=== PATIENT | male | born 1945 | race Caucasian/White ===

== ENCOUNTER 2023-11-17 01:40 | Inpatient (IN) | payer MEDICARE, OTHER ==
[~2023-11-17] VITALS: Ht 175.3 cm; Wt 65.8 kg
[2023-11-17] MEDS ORDERED: AMLO-212 PO (02:12)
[2023-11-17] MEDS ORDERED: METO-358 PO (02:12)
[2023-11-17] MEDS ORDERED: DOCU-141 PO (02:12)
[2023-11-17] MEDS ORDERED: CEPH500C2 PO (02:12)
[2023-11-17] MEDS ORDERED: LISI20TA30 PO (02:12)
[2023-11-17] MEDS ORDERED: ACET-73 PO (02:12)
[2023-11-17] MEDS ORDERED: DIVA250T4 PO (02:12)
[2023-11-17] MEDS ORDERED: GABA-532 PO (02:12)
[2023-11-17] MEDS ORDERED: CLON0.1T PO (02:12)
[2023-11-17] MEDS ORDERED: POLY15DR31 OP (02:12)
[2023-11-17] MEDS ORDERED: VITA1CAP PO (02:12)
[2023-11-17] MEDS ORDERED: LEVO50TA PO (02:12)
[2023-11-17] MEDS ORDERED: FAMO10TA41 PO (02:12)
[2023-11-17] MEDS ORDERED: HYDR-3980 PO (02:12)
[2023-11-17] MEDS ORDERED: ACET-3117 PO (02:12)
[2023-11-17] MEDS ORDERED: BUSP5TAB3 PO (02:12)
[2023-11-17] MEDS ORDERED: LIDOCAINE 2% (GLYDO= UROJET) 10 ML JELLY MM ONE ×2 (02:45→02:49)
[2023-11-17 02:53] LABS: BASOPHILS # (AUTO) 0.1 K/UL (0.0-0.2); BASOPHILS % (AUTO) 0.5 % (0.0-2.0); EOSINOPHILS # (AUTO) 0.5 K/uL (0.0-0.7); EOSINOPHILS % (AUTO) 4.2 % (0.0-7.0); HEMATOCRIT 38.5 % (36.7-47.1); HEMOGLOBIN 13.1 g/dL (12.5-16.3); LYMPHOCYTES % (AUTO) 26.9 % (20.5-51.5); MEAN CORPUSCULAR HEMOGLOBIN 29.7 uug (23.8-33.4); MEAN CORPUSCULAR HGB CONC 34 g/dL (32.5-36.3); MEAN CORPUSCULAR VOLUME 87.5 fL (73.0-96.2); MONOCYTES # (AUTO) 1.6 K/uL (0.1-1.30); MONOCYTES % (AUTO) 14.6 % (0.0-11.0); NEUTROPHILS % (AUTO) 53.8 % (38.5-71.5); PLATELET COUNT (AUTO) 404 K/uL (152-348); RED CELL DISTRIBUTION WIDTH 14.7 % (12.1-16.2); WHITE BLOOD COUNT (AUTO) 11.1 K/uL (3.6-10.2)
[2023-11-17 03:01] LABS: CALCIUM 8.5 mg/dL (8.5-10.1); CARBON DIOXIDE 22 mmol/L (21-32); CHLORIDE 106 mmol/L (98-107); CREATININE 0.6 mg/dL (0.6-1.3); GLUCOSE 113 mg/dL (74-106); SODIUM SERUM 140 mmol/L (136-145); UREA NITROGEN, BLOOD 19 mg/dL (7-18)
[2023-11-17 03:14] LABS: DIFFERENTIAL COMMENT 1
[2023-11-17 03:21] LABS: ALANINE AMINOTRANSFERASE 19 U/L (16-63); ALBUMIN 2.2 g/dL (3.4-5.0); ALKALINE PHOSPHATASE 68 U/L (50-136); ASPARTATE AMINOTRANSFERASE 9 U/L (15-37); BILIRUBIN,DIRECT 0.2 mg/dL (0.0-0.2); BILIRUBIN,TOTAL 0.4 mg/dL (0.2-1.0); NT-PRO BNP 508 pg/mL (0-125); TOTAL PROTEIN, SERUM 6.5 g/dL (6.4-8.2)
[2023-11-17 04:08] LABS: *BILIRUBIN,URIN NEGATIVE (NEGATIVE); *BLOOD, URINE 2+ (NEGATIVE); *CLARITY,URINE CLEAR (CLEAR); *COLOR,URINE YELLOW (YELLOW); *KETONES,URINE NEGATIVE (NEGATIVE); *PROTEIN,URINE NEGATIVE (NEGATIVE); LEUKOCYTE ESTERASE ,URINE 1+ (NEGATIVE); PH,URINE 6.5 (5.0-8.0); UGLUCOSE NEGATIVE (NEGATIVE)
[2023-11-17 04:10] LABS: NITRITE, URINE NEGATIVE (NEGATIVE)
[2023-11-17 04:13] LABS: BACTERIA,URINE FEW /HPF (NONE SEEN); RBC,URINE 20-50 /HPF (0-3); SQUAMOUS EPITHELIAL CELL,UR NONE SEEN /HPF (NONE SEEN)
[2023-11-17] MEDS ORDERED: HALOPERIDOL LACTATE 5 MG/1 ML VIAL ONE (04:22)
[2023-11-17] MEDS ORDERED: PANTOPRAZOLE SODIUM 40 MG VIAL ONE (04:23)
[2023-11-17] MEDS ORDERED: HALOPERIDOL LACTATE 5 MG/1 ML VIAL IM ONE (04:30)
[2023-11-17] MEDS ORDERED: PANTOPRAZOLE SODIUM IV 80 MG in IV DEXTROSE 5% 100 ML IV ONE (04:30)
[2023-11-17] MEDS ORDERED: LORAZEPAM 2 MG/1 ML VIAL IV ONE (04:45)
[2023-11-17] MEDS ORDERED: LORAZEPAM 2 MG/1 ML VIAL ONE (04:49)
[2023-11-17] MEDS ORDERED: HYDROMORPHONE 1 MG/1 ML DISP.SYRIN IV ONE ×2 (05:15→10:45)
[2023-11-17] MEDS ORDERED: HYDROMORPHONE 1 MG/1 ML DISP.SYRIN ONE ×2 (05:16→10:46)
[2023-11-17] MEDS ORDERED: CEFTRIAXONE /D5W 50ML IVPB **ER PYXIS IV ONE (05:30)
[2023-11-17] MEDS ORDERED: CEFTRIAXONE 1 G in IV DEXTROSE 5% 50 ML IV ONE (05:30)
[2023-11-17] MEDS ORDERED: METRONIDAZOLE 500 MG/NS 100ML 100 ML IV ONE (07:28)
[2023-11-17] MEDS ORDERED: METRONIDAZOLE 500 MG/NS 100 ML PIGGYBACK IV ONE (07:30)
[2023-11-17] MEDS ORDERED: GABAPENTIN 100 MG CAPSULE PO SCH (12:00)
[2023-11-17] MEDS ORDERED: Medication Not On Formulary EA (Acetaminophen 650 MG) PO PRN (12:00)
[2023-11-17] MEDS ORDERED: ONDANSETRON 4 MG/2 ML VIAL IV PRN (12:00)
[2023-11-17] MEDS: FAMOTIDINE 20 MG TABLET PO SCH (12:48)
[2023-11-17] MEDS: VITAMIN B COMPLEX 1 TABLET PO SCH (12:49)
[2023-11-17] MEDS ORDERED: ACETAMINOPHEN 325 MG TABLET PO PRN (13:00)
[2023-11-17] MEDS ORDERED: DIVALPROEX 250 MG TABLET.DR PO ONE ×2 (13:41→18:15)
[2023-11-17] MEDS ORDERED: busPIRone 5 MG TABLET ONE ×2 (13:41→18:15)
[2023-11-17] MEDS ORDERED: FAMOTIDINE. 20 MG/2 ML VIAL IV ONE (13:42)
[2023-11-17] MEDS ORDERED: FAMOTIDINE 20 MG TABLET ONE (13:43)
[2023-11-17] MEDS: busPIRone 5 MG TABLET PO SCH ×2 (13:50→17:00)
[2023-11-17] MEDS: DIVALPROEX 250 MG TABLET.DR PO SCH ×2 (13:52→17:00)
[2023-11-17] MEDS ORDERED: PIPERACILLIN SODIUM/TAZOBACTAM 3.375 G in IV DEXTROSE 5% 50 ML IV SCH (14:00)
[2023-11-17] MEDS: PIPERACILLIN SODIUM/TAZOBACTAM 3.375 G in IV DEXTROSE 5% 100 ML IV SCH ×2 (14:11→23:43)
[2023-11-17] MEDS ORDERED: GABAPENTIN 300 MG CAPSULE ONE (14:13)
[2023-11-17] MEDS: GABAPENTIN 300 MG CAPSULE PO SCH ×2 (14:25→22:18)
[2023-11-17] MEDS: POLYVINYL ALCOHOL OPHT DROPS 15 ML BOTTLE OP SCH (17:00)
[2023-11-17] MEDS ORDERED: POLYVINYL ALCOHOL OP SCH (17:00)
[2023-11-17 21:25] VITALS: BP 148/75; TEMP 98.2; O2SAT 97
[2023-11-17] MEDS ORDERED: PIPERACILLIN/TAZOBACTAM/D5W 50 ML IV ONE (23:23)
[2023-11-18 00:22] VITALS: BP 138/82; TEMP 97.4; O2SAT 100
[2023-11-18] MEDS: HYDROCODONE/APAP 10-325 MG TABLET PO PRN ×2 (04:52→20:29)
[2023-11-18] MEDS ORDERED: PIPERACILLIN/TAZOBACTAM/D5W 50 ML IV ONE (05:46)
[2023-11-18] MEDS: GABAPENTIN 300 MG CAPSULE PO SCH ×3 (05:47→22:28)
[2023-11-18] MEDS: PIPERACILLIN SODIUM/TAZOBACTAM 3.375 G in IV DEXTROSE 5% 100 ML IV SCH ×3 (05:56→22:29)
[2023-11-18] MEDS ORDERED: IV D5W-0.45% NS +20 KCL 1,000 ML IV ONE (06:00)
[2023-11-18] MEDS: POTASSIUM CHLORIDE 20 MEQ in IV D5 1/2 NS 1000 ML 1,000 ML IV PRN ×2 (06:07→20:29)
[2023-11-18 06:33] LABS: BASOPHILS # (AUTO) 0.1 K/UL (0.0-0.2); BASOPHILS % (AUTO) 0.6 % (0.0-2.0); EOSINOPHILS # (AUTO) 0.5 K/uL (0.0-0.7); EOSINOPHILS % (AUTO) 4.7 % (0.0-7.0); HEMATOCRIT 37.6 % (36.7-47.1); HEMOGLOBIN 12.7 g/dL (12.5-16.3); LYMPHOCYTES # (AUTO) 1.7 K/uL (0.8-4.8); LYMPHOCYTES % (AUTO) 15.9 % (20.5-51.5); MEAN CORPUSCULAR HEMOGLOBIN 29.7 uug (23.8-33.4); MEAN CORPUSCULAR HGB CONC 34 g/dL (32.5-36.3); MEAN CORPUSCULAR VOLUME 87.7 fL (73.0-96.2); MONOCYTES # (AUTO) 1.1 K/uL (0.1-1.30); MONOCYTES % (AUTO) 10.5 % (0.0-11.0); NEUTROPHILS # (AUTO) 7.3 K/uL (1.8-8.9); NEUTROPHILS % (AUTO) 68.3 % (38.5-71.5); PLATELET COUNT (AUTO) 389 K/uL (152-348); RED BLOOD CELL COUNT(AUTO) 4.29 MIL/uL (4.06-5.63); RED CELL DISTRIBUTION WIDTH 14.5 % (12.1-16.2); WHITE BLOOD COUNT (AUTO) 10.7 K/uL (3.6-10.2)
[2023-11-18] MEDS: LEVOTHYROXINE SODIUM 50 MCG TABLET PO SCH (06:37)
[2023-11-18 06:42] LABS: DIFFERENTIAL COMMENT 1
[2023-11-18 06:50] LABS: ALBUMIN 2.1 g/dL (3.4-5.0); BILIRUBIN,TOTAL 0.4 mg/dL (0.2-1.0); CREATININE 0.6 mg/dL (0.6-1.3); MAGNESIUM 2.1 mg/dL (1.8-2.4); PHOSPHOROUS 3.5 mg/dL (2.5-4.9); TOTAL PROTEIN, SERUM 6.4 g/dL (6.4-8.2)
[2023-11-18 07:00] LABS: POTASSIUM 2.8 mmol/L (3.5-5.1); THYROID STIMULATING HORMONE 3.592 mIU/mL (0.358-3.740)
[2023-11-18 07:02] VITALS: BP 138/75; TEMP 97.6; O2SAT 100
[2023-11-18 07:02] LABS: CALCIUM 8.2 mg/dL (8.5-10.1)
[2023-11-18 08:00] VITALS: BP 130/62; TEMP 98.1; O2SAT 98
[2023-11-18] MEDS ORDERED: FAMOTIDINE 20 MG PO SCH (09:00)
[2023-11-18] MEDS: VITAMIN B COMPLEX 1 TABLET PO SCH (09:17)
[2023-11-18] MEDS: POLYVINYL ALCOHOL OPHT DROPS 15 ML BOTTLE OP SCH ×2 (09:18→17:49)
[2023-11-18] MEDS: FAMOTIDINE 20 MG TABLET PO SCH (09:23)
[2023-11-18] MEDS: busPIRone 5 MG TABLET PO SCH ×3 (09:23→17:50)
[2023-11-18] MEDS: DIVALPROEX 250 MG TABLET.DR PO SCH ×3 (09:23→17:49)
[2023-11-18] MEDS ORDERED: POTASSIUM CHLORIDE 50 ML IV SCH (09:45)
[2023-11-18] MEDS ORDERED: POTASSIUM CHLORIDE 20 MEQ TAB.PRT.SR PO ONE (09:45)
[2023-11-18] MEDS ORDERED: REMEDY ESSENTIAL ZINC PASTE 113 GM TOP PRN (10:15)
[2023-11-18 16:00] VITALS: BP 137/77; TEMP 98.7; O2SAT 96
[2023-11-18 19:30] VITALS: BP 137/68; TEMP 98.4; O2SAT 98
[2023-11-18] MEDS: TAMSULOSIN HCL 0.4 MG CAP.SR.24H PO SCH (20:28)
[2023-11-18] MEDS: REMEDY ESSENTIAL ZINC PASTE 113 GM TOP SCH (22:29)
[2023-11-19] MEDS: PIPERACILLIN SODIUM/TAZOBACTAM 3.375 G in IV DEXTROSE 5% 100 ML IV SCH ×3 (06:23→21:05)
[2023-11-19] MEDS: GABAPENTIN 300 MG CAPSULE PO SCH ×4 (06:23→22:00)
[2023-11-19] MEDS: LEVOTHYROXINE SODIUM 50 MCG TABLET PO SCH (06:24)
[2023-11-19 06:41] VITALS: BP 127/76; TEMP 98.1; O2SAT 97
[2023-11-19 08:00] VITALS: TEMP 98.4
[2023-11-19] MEDS: VITAMIN B COMPLEX 1 TABLET PO SCH (08:10)
[2023-11-19] MEDS: busPIRone 5 MG TABLET PO SCH ×3 (08:10→16:02)
[2023-11-19] MEDS: DIVALPROEX 250 MG TABLET.DR PO SCH ×3 (08:10→16:02)
[2023-11-19] MEDS: REMEDY ESSENTIAL ZINC PASTE 113 GM TOP SCH ×2 (08:11→21:34)
[2023-11-19] MEDS: POLYVINYL ALCOHOL OPHT DROPS 15 ML BOTTLE OP SCH ×2 (08:11→16:02)
[2023-11-19] MEDS: FAMOTIDINE 20 MG TABLET PO SCH (08:11)
[2023-11-19 12:00] VITALS: BP 115/58; TEMP 98; O2SAT 97
[2023-11-19 16:00] VITALS: BP 158/74; TEMP 97.4; O2SAT 96
[2023-11-19 20:23] VITALS: BP 124/91; O2SAT 95
[2023-11-19] MEDS: TAMSULOSIN HCL 0.4 MG CAP.SR.24H PO SCH ×2 (21:00→21:05)
[2023-11-19] MEDS: POTASSIUM CHLORIDE 20 MEQ in IV D5 1/2 NS 1000 ML 1,000 ML IV PRN (21:05)
[2023-11-20] MEDS: GABAPENTIN 300 MG CAPSULE PO SCH ×2 (06:09→14:04)
[2023-11-20] MEDS: PIPERACILLIN SODIUM/TAZOBACTAM 3.375 G in IV DEXTROSE 5% 100 ML IV SCH ×2 (06:09→14:04)
[2023-11-20] MEDS: LEVOTHYROXINE SODIUM 50 MCG TABLET PO SCH (06:09)
[2023-11-20] MEDS ORDERED: PROTEIN SUPPLEMENT (PROSTAT) 30 ML LIQUID PO SCH (08:00)
[2023-11-20] MEDS: VITAMIN B COMPLEX 1 TABLET PO SCH (08:06)
[2023-11-20] MEDS: busPIRone 5 MG TABLET PO SCH ×2 (08:06→12:35)
[2023-11-20] MEDS: POLYVINYL ALCOHOL OPHT DROPS 15 ML BOTTLE OP SCH (08:06)
[2023-11-20] MEDS: DIVALPROEX 250 MG TABLET.DR PO SCH ×2 (08:06→12:35)
[2023-11-20] MEDS: FAMOTIDINE 20 MG TABLET PO SCH (08:06)
[2023-11-20] MEDS: REMEDY ESSENTIAL ZINC PASTE 113 GM TOP SCH (08:52)
[2023-11-20] MEDS ORDERED: TAMS-3 PO (12:00)
[2023-11-20] MEDS ORDERED: POTA10CA43 PO (12:00)
[2023-11-20] MEDS ORDERED: PIPE3.379 IV (12:00)
[2023-11-20] MEDS ORDERED: ACID1TAB4 PO (12:00)
[2023-11-20 12:32] VITALS: BP 136/68; TEMP 97.4; O2SAT 97
== END 2023-11-20 15:40 | DRG 871 ==
LOC: ER 01:51 → TRANSITION 11:26 → MEDSURG3 21:05 → TELE3 21:55 → MEDSURG3 11-18 12:55
PROVIDERS: ADMIT Internal Medicine; ATTEND Internal Medicine
DX: A41.9 Sepsis, unspecified organism (principal); E43 Unspecified severe protein-calorie malnutrition; G92.8 Other toxic encephalopathy; A09 Infectious gastroenteritis and colitis, unspecified; D68.59 Other primary thrombophilia; F01.52 Vascular dementia, unspecified severity, with psychotic disturbance; F01.54 Vascular dementia, unspecified severity, with anxiety; G81.91 Hemiplegia, unspecified affecting right dominant side; N30.91 Cystitis, unspecified with hematuria; N40.0 Benign prostatic hyperplasia without lower urinary tract symptoms; E03.9 Hypothyroidism, unspecified; K21.9 Gastro-esophageal reflux disease without esophagitis; H04.123 Dry eye syndrome of bilateral lacrimal glands; Z74.09 Other reduced mobility; G70.9 Myoneural disorder, unspecified; I69.319 Unspecified symptoms and signs involving cognitive functions following cerebral infarction; K80.20 Calculus of gallbladder without cholecystitis without obstruction; R13.10 Dysphagia, unspecified; S30.0XXA Contusion of lower back and pelvis, initial encounter; X58.XXXA Exposure to other specified factors, initial encounter; Y92.129 Unspecified place in nursing home as the place of occurrence of the external cause; E87.6 Hypokalemia; Z86.69 Personal history of other diseases of the nervous system and sense organs; Z79.899 Other long term (current) drug therapy; I10 Essential (primary) hypertension; E11.9 Type 2 diabetes mellitus without complications; I44.7 Left bundle-branch block, unspecified; G71.00 Muscular dystrophy, unspecified
CPT/HCPCS: 36415; 71045; 80164; 82378; 83550; 83605; 83735; 84100; 84443; 84484; 85025; 85610; 87040; 93005; A4663; A6213; C1758; C9113; G0378; J0696; J1170; J1630; J2060; J2543; J3480; J3490

== ENCOUNTER 2025-07-26 22:54 | Inpatient (IN) | payer MEDICARE, OTHER ==
[~2025-07-26] VITALS: Ht 170.2 cm; Wt 74.8 kg
[~2025-07-26 22:54] MED LIST: ACET-3117 PO; ACID1TAB4 PO; AMLO-212 PO; BUSP5TAB3 PO; CLON0.1T PO; DIVA250T4 PO; DOCU-141 PO; FAMO10TA41 PO; GABA-532 PO; HYDR-3980 PO; LEVO50TA PO; LISI20TA30 PO; METO-358 PO; PIPE3.379 IV; POLY15DR31 OP; POTA10CA43 PO; TAMS-3 PO; VITA1CAP PO
[2025-07-26 23:34] LABS: PLATELET COUNT (AUTO) 209 K/uL (152-348); RED BLOOD CELL COUNT(AUTO) 3.42 MIL/uL (4.06-5.63); RED CELL DISTRIBUTION WIDTH 16.7 % (12.1-16.2); WHITE BLOOD COUNT (AUTO) 9.3 K/uL (3.6-10.2)
[2025-07-26 23:40] LABS: CREATININE 1.2 mg/dL (0.6-1.3); SODIUM SERUM 147 mmol/L (136-145); UREA NITROGEN, BLOOD 37 mg/dL (7-18)
[2025-07-26] MEDS ORDERED: DIVA500T2 PO (23:40)
[2025-07-26] MEDS ORDERED: MULT-213 PO (23:40)
[2025-07-26] MEDS ORDERED: BANANA FLAKES PO (23:40)
[2025-07-26 23:45] LABS: *BILIRUBIN,URIN 1+ (NEGATIVE); *BLOOD, URINE 3+ (NEGATIVE); *CLARITY,URINE CLOUDY (CLEAR); *COLOR,URINE YELLOW (YELLOW); *KETONES,URINE TRACE (NEGATIVE); *PROTEIN,URINE 2+ (NEGATIVE); *UROBILINOGEN,URINE 2.0 E.U./dl (NORMAL); LEUKOCYTE ESTERASE ,URINE 3+ (NEGATIVE); NITRITE, URINE NEGATIVE (NEGATIVE); UGLUCOSE NEGATIVE (NEGATIVE)
[2025-07-26 23:46] LABS: ASPARTATE AMINOTRANSFERASE 8 U/L (15-37); TOTAL PROTEIN, SERUM 6.7 g/dL (6.4-8.2)
[2025-07-27 00:01] LABS: SQUAMOUS EPITHELIAL CELL,UR FEW /HPF (NONE SEEN)
[2025-07-27 00:29] LABS: *BILIRUBIN,URIN 1+ (NEGATIVE); *BLOOD, URINE 3+ (NEGATIVE); *CLARITY,URINE CLOUDY (CLEAR); *COLOR,URINE YELLOW (YELLOW); *KETONES,URINE TRACE (NEGATIVE); *PROTEIN,URINE 2+ (NEGATIVE); *UROBILINOGEN,URINE 1.0 E.U./dl (NORMAL); LEUKOCYTE ESTERASE ,URINE 3+ (NEGATIVE); NITRITE, URINE NEGATIVE (NEGATIVE); UGLUCOSE NEGATIVE (NEGATIVE)
[2025-07-27] MEDS ORDERED: CEFEPIME HCL 2 GM VIAL ONE (00:32)
[2025-07-27] MEDS ORDERED: IV 1/2 NS + KCL 20 MEQ BAG 1,000 ML ONE (00:33)
[2025-07-27] MEDS: IV 1/2 NS + KCL 20 MEQ BAG 1,000 ML IV ONE (00:49)
[2025-07-27] MEDS: CEFEPIME (MAXEPIME) 2 G in IV DEXTROSE 5% 100 ML IV ONE (00:49)
[2025-07-27] MEDS ORDERED: CEFEPIME (MAXEPIME) 1 G in IV DEXTROSE 5% 50 ML IV SCH (01:00)
[2025-07-27] MEDS ORDERED: REMEDY ESSENTIAL ZINC PASTE 113 GM TP PRN (01:00)
[2025-07-27] MEDS ORDERED: ONDANSETRON 4 MG/2 ML VIAL IV PRN (01:00)
[2025-07-27] MEDS ORDERED: MAGNESIUM HYDROXIDE 30 ML LIQUID UDC PO PRN (01:00)
[2025-07-27] MEDS ORDERED: LORAZEPAM 2 MG/1 ML VIAL ONE (01:46)
[2025-07-27] MEDS: LORAZEPAM 2 MG/1 ML VIAL IV ONE (01:59)
[2025-07-27 02:32] VITALS: BP 104/65
[2025-07-27 03:20] VITALS: BP 113/60; TEMP 98; O2SAT 95
[2025-07-27] MEDS: IV NS 1000 ML 1,000 ML IV PRN (04:04)
[2025-07-27 06:00] VITALS: BP 109/64; TEMP 98.6; O2SAT 97
[2025-07-27] MEDS ORDERED: ACET-2154 PO (09:22)
[2025-07-27] MEDS ORDERED: LEVO75TA7 PO (09:23)
[2025-07-27] MEDS: CEFEPIME (MAXEPIME) 1 G in IV DEXTROSE 5% 50 ML IV SCH (11:28)
[2025-07-27 11:47] VITALS: BP 155/80; TEMP 99.8; O2SAT 98
[2025-07-27 16:46] VITALS: BP 160/80; TEMP 99.8; O2SAT 98
[2025-07-27] MEDS: ACETAMINOPHEN 325 MG TABLET PO PRN (16:47)
[2025-07-27 19:55] VITALS: BP 160/71; TEMP 99.5; O2SAT 97
[2025-07-27] MEDS: HYDROCODONE/APAP 5-325MG TABLET PO PRN (21:34)
[2025-07-27 22:04] LABS: *BILIRUBIN,URIN NEGATIVE (NEGATIVE); *BLOOD, URINE 2+ (NEGATIVE); *CLARITY,URINE CLEAR (CLEAR); *COLOR,URINE YELLOW (YELLOW); *KETONES,URINE NEGATIVE (NEGATIVE); *PROTEIN,URINE 2+ (NEGATIVE); *UROBILINOGEN,URINE 1.0 E.U./dl (NORMAL); LEUKOCYTE ESTERASE ,URINE TRACE (NEGATIVE); NITRITE, URINE NEGATIVE (NEGATIVE); UGLUCOSE NEGATIVE (NEGATIVE)
[2025-07-27 22:11] LABS: *CREATININE,URINE 77.2 mg/dL (30-125); *SODIUM RNDM,URINE 74.0 mmol/L (40-220); *URINE TOTAL PROTEIN RANDOM 87.9 mg/dL (<150/24HR)
[2025-07-27 22:29] LABS: SQUAMOUS EPITHELIAL CELL,UR NONE SEEN /HPF (NONE SEEN)
[2025-07-27] MEDS: TEMAZEPAM 15 MG CAPSULE PO PRN (23:23)
[2025-07-28 00:04] VITALS: BP 150/66; TEMP 98.6; O2SAT 98
[2025-07-28 04:56] VITALS: BP 150/66; TEMP 98.6; O2SAT 98
[2025-07-28] MEDS: METOPROLOL TARTRATE 25 MG TABLET PO SCH (09:14)
[2025-07-28 09:57] VITALS: BP 148/62; TEMP 98.1; O2SAT 98
[2025-07-28 16:19] VITALS: BP 139/61; TEMP 98.2; O2SAT 98
[2025-07-28 19:50] VITALS: BP 150/72; TEMP 99.7; O2SAT 99
[2025-07-28] MEDS ORDERED: VANCOMYCIN HCL 500 MG VIAL ONE (21:42)
[2025-07-28] MEDS ORDERED: VANCOMYCIN 1000 MG VIAL ONE (21:42)
[2025-07-28] MEDS: VANCOMYCIN IV 1,500 MG in IV NORMAL SALINE 500 ML IV ONE (22:02)
[2025-07-28 23:02] LABS: PLATELET COUNT (AUTO) 202 K/uL (152-348); RED BLOOD CELL COUNT(AUTO) 3.10 MIL/uL (4.06-5.63); RED CELL DISTRIBUTION WIDTH 16.7 % (12.1-16.2); WHITE BLOOD COUNT (AUTO) 8.1 K/uL (3.6-10.2)
[2025-07-28 23:36] LABS: ASPARTATE AMINOTRANSFERASE 17 U/L (15-37); CREATININE 0.7 mg/dL (0.6-1.3); SODIUM SERUM 143 mmol/L (136-145); TOTAL PROTEIN, SERUM 6.4 g/dL (6.4-8.2); UREA NITROGEN, BLOOD 19 mg/dL (7-18)
[2025-07-28 23:52] VITALS: BP 142/67; TEMP 98; O2SAT 96
[2025-07-29 05:00] VITALS: BP 160/85; TEMP 98.8; O2SAT 98
[2025-07-29 06:44] LABS: PLATELET COUNT (AUTO) 222 K/uL (152-348); RED BLOOD CELL COUNT(AUTO) 3.15 MIL/uL (4.06-5.63); RED CELL DISTRIBUTION WIDTH 16.5 % (12.1-16.2); WHITE BLOOD COUNT (AUTO) 9.0 K/uL (3.6-10.2)
[2025-07-29 07:22] LABS: ASPARTATE AMINOTRANSFERASE 21 U/L (15-37); CREATININE 0.6 mg/dL (0.6-1.3); SODIUM SERUM 142 mmol/L (136-145); TOTAL PROTEIN, SERUM 6.2 g/dL (6.4-8.2); UREA NITROGEN, BLOOD 17 mg/dL (7-18)
[2025-07-29 07:39] VITALS: BP 162/78; TEMP 98.2; O2SAT 96
[2025-07-29] MEDS ORDERED: CEFEPIME (MAXEPIME) 1 G in IV DEXTROSE 5% 50 ML IV SCH (08:00)
[2025-07-29 10:05] VITALS: BP 136/61
[2025-07-29] MEDS: CEFEPIME (MAXEPIME) 1 G in IV DEXTROSE 5% 50 ML IV SCH (11:51)
[2025-07-29] MEDS: POTASSIUM CHLORIDE 20 MEQ TAB.PRT.SR PO ONE (11:52)
[2025-07-29] MEDS: NEUTRA PHOS PACKET PO ONE (11:52)
[2025-07-29] MEDS ORDERED: POTASSIUM PHOSPHATE MM 15 MMOL in IV NORMAL SALINE 250 ML IV ONE (12:00)
[2025-07-29 15:39] VITALS: BP 164/89; TEMP 98.8; O2SAT 98
[2025-07-29 19:34] VITALS: BP 162/92; TEMP 101.8; O2SAT 98
[2025-07-29] MEDS: VANCOMYCIN IV 1,250 MG in IV DEXTROSE 5% 250 ML IV SCH (20:19)
[2025-07-30 06:23] VITALS: BP 140/92; TEMP 99.9; O2SAT 98
[2025-07-30 07:06] LABS: CREATININE 0.6 mg/dL (0.6-1.3); SODIUM SERUM 141 mmol/L (136-145); UREA NITROGEN, BLOOD 11 mg/dL (7-18)
[2025-07-30] MEDS: POTASSIUM PHOSPHATE MM 15 MMOL in IV NORMAL SALINE 250 ML IV ONE (10:19)
[2025-07-30 11:03] VITALS: BP 148/62; TEMP 97.6; O2SAT 96
[2025-07-30] MEDS ORDERED: CEPH500C2 PO (13:26)
[2025-07-30] MEDS ORDERED: MAGN400O6 PO (13:28)
[2025-07-30] MEDS ORDERED: DOCU-141 PO (13:28)
[2025-07-30] MEDS ORDERED: METO25TA6 PO (13:28)
[2025-07-30] MEDS: HALOPERIDOL LACTATE 5 MG/1 ML VIAL IM STA (15:01)
[2025-07-30] MEDS ORDERED: NEUTRA PHOS PACKET PO SCH (16:00)
== END 2025-07-30 15:20 | DRG 698 ==
LOC: ER 22:54 → MEDSURG3 07-27 00:57 → TELE3 07-27 10:09 → MEDSURG3 07-29 14:25
PROVIDERS: ADMIT Nurse Practitioner Acute Care; ATTEND Internal Medicine
DX: T83.511A Infection and inflammatory reaction due to indwelling urethral catheter, initial encounter (principal); A41.2 Sepsis due to unspecified staphylococcus; A41.51 Sepsis due to Escherichia coli [E. coli]; A41.59 Other Gram-negative sepsis; R65.20 Severe sepsis without septic shock; G92.8 Other toxic encephalopathy; E43 Unspecified severe protein-calorie malnutrition; I69.351 Hemiplegia and hemiparesis following cerebral infarction affecting right dominant side; F01.52 Vascular dementia, unspecified severity, with psychotic disturbance; E87.0 Hyperosmolality and hypernatremia; D68.59 Other primary thrombophilia; I47.19 Other supraventricular tachycardia; Z66 Do not resuscitate; N39.0 Urinary tract infection, site not specified; Y73.8 Miscellaneous gastroenterology and urology devices associated with adverse incidents, not elsewhere classified; Y92.129 Unspecified place in nursing home as the place of occurrence of the external cause; G70.9 Myoneural disorder, unspecified; Z86.69 Personal history of other diseases of the nervous system and sense organs; E03.9 Hypothyroidism, unspecified; Z79.890 Hormone replacement therapy; K56.41 Fecal impaction; H04.123 Dry eye syndrome of bilateral lacrimal glands; E88.09 Other disorders of plasma-protein metabolism, not elsewhere classified; G71.00 Muscular dystrophy, unspecified; E87.6 Hypokalemia; D50.9 Iron deficiency anemia, unspecified; E11.22 Type 2 diabetes mellitus with diabetic chronic kidney disease; I12.9 Hypertensive chronic kidney disease with stage 1 through stage 4 chronic kidney disease, or unspecified chronic kidney disease; N18.9 Chronic kidney disease, unspecified; Z91.199 Patient's noncompliance with other medical treatment and regimen due to unspecified reason; N40.0 Benign prostatic hyperplasia without lower urinary tract symptoms
CPT/HCPCS: 36415; 71045; 74018; 83605; 83735; 84100; 84300; 84443; 85025; 85730; 87040; 87077; 87086; A4606; A4663; G0378; J0692; J1630; J2060; J3373; J3490; J7040; J7050

== ENCOUNTER 2025-11-13 15:27 | Inpatient (IN) | payer MEDICARE, OTHER ==
[~2025-11-13] VITALS: Ht 172.7 cm; Wt 67.1 kg
[~2025-11-13 15:27] MED LIST changes: +ACET-2154 PO; -ACET-3117 PO; -ACID1TAB4 PO; -AMLO-212 PO; +BANANA FLAKES PO; +CEPH500C2 PO; -CLON0.1T PO; -DIVA250T4 PO; +DIVA500T2 PO; -FAMO10TA41 PO; -HYDR-3980 PO; -LEVO50TA PO; +LEVO75TA7 PO; -LISI20TA30 PO; +MAGN400O6 PO; -METO-358 PO; +METO25TA6 PO; +MULT-213 PO; -PIPE3.379 IV; -POLY15DR31 OP; -POTA10CA43 PO; -TAMS-3 PO; -VITA1CAP PO
[2025-11-13] MEDS: ONDANSETRON 4 MG/2 ML VIAL IV ONE (15:45)
[2025-11-13] MEDS: HYDROMORPHONE 1 MG/1 ML DISP.SYRIN IV ONE (15:45)
[2025-11-13] MEDS: IV NORMAL SALINE 1000 ML BAG IV ONE (15:45)
[2025-11-13 16:00] VITALS: BP 158/88
[2025-11-13 16:03] LABS: PLATELET COUNT (AUTO) 302 K/uL (152-348); RED BLOOD CELL COUNT(AUTO) 4.17 MIL/uL (4.06-5.63); RED CELL DISTRIBUTION WIDTH 14.2 % (12.1-16.2); WHITE BLOOD COUNT (AUTO) 6.7 K/uL (3.6-10.2)
[2025-11-13] MEDS ORDERED: NALO4SPR BNOSTRILS (16:12)
[2025-11-13] MEDS ORDERED: CLOT15CR27 TP (16:12)
[2025-11-13 16:13] LABS: CREATININE 0.8 mg/dL (0.6-1.3); SODIUM SERUM 140 mmol/L (136-145); UREA NITROGEN, BLOOD 23 mg/dL (7-18)
[2025-11-13] MEDS ORDERED: HYDR-5156 PO (16:13)
[2025-11-13] MEDS ORDERED: HYDR-3980 PO (16:15)
[2025-11-13 16:17] LABS: ASPARTATE AMINOTRANSFERASE 10 U/L (15-37); TOTAL PROTEIN, SERUM 7.1 g/dL (6.4-8.2)
[2025-11-13] MEDS ORDERED: ONDANSETRON 4 MG/2 ML VIAL ONE (16:54)
[2025-11-13] MEDS ORDERED: ONDANSETRON 4 MG/2 ML VIAL IV PRN (17:15)
[2025-11-13] MEDS: LACTULOSE 20 G/30 ML LIQUID UDC PO SCH (17:15)
[2025-11-13] MEDS ORDERED: MAGNESIUM HYDROXIDE 30 ML LIQUID UDC PO PRN (17:15)
[2025-11-13 17:36] LABS: *BILIRUBIN,URIN NEGATIVE (NEGATIVE); *BLOOD, URINE 1+ (NEGATIVE); *CLARITY,URINE CLEAR (CLEAR); *COLOR,URINE YELLOW (YELLOW); *KETONES,URINE NEGATIVE (NEGATIVE); *PROTEIN,URINE NEGATIVE (NEGATIVE); *UROBILINOGEN,URINE 0.2 E.U./dl (NORMAL); LEUKOCYTE ESTERASE ,URINE 2+ (NEGATIVE); NITRITE, URINE NEGATIVE (NEGATIVE); UGLUCOSE NEGATIVE (NEGATIVE)
[2025-11-13] MEDS ORDERED: ASCO500C18 PO (18:13)
[2025-11-13 19:20] VITALS: BP 165/117; TEMP 98.9; O2SAT 96
[2025-11-13 19:22] VITALS: BP 153/95; TEMP 97; O2SAT 97
[2025-11-13] MEDS: METOPROLOL TARTRATE 25 MG TABLET PO SCH (21:00)
[2025-11-13] MEDS: IV NS 1000 ML 1,000 ML IV SCH (21:08)
[2025-11-13] MEDS: OLANZAPINE 10 MG VIAL IM PRN (22:08)
[2025-11-13] MEDS ORDERED: CEFEPIME HCL 1 G VIAL ONE (23:17)
[2025-11-13] MEDS: MORPHINE SULFATE 2 MG/1 ML DISP.SYRIN IVP PRN (23:38)
[2025-11-13] MEDS: CEFEPIME (MAXEPIME) 1 G in IV DEXTROSE 5% 50 ML IV SCH (23:49)
[2025-11-14] MEDS: LORAZEPAM 2 MG/1 ML VIAL IM ONE (01:58)
[2025-11-14] MEDS: DIVALPROEX 500 MG TABLET.DR PO SCH (06:00)
[2025-11-14 06:17] VITALS: BP 134/90; TEMP 98.2; O2SAT 96
[2025-11-14 06:32] LABS: PLATELET COUNT (AUTO) 318 K/uL (152-348); RED BLOOD CELL COUNT(AUTO) 4.33 MIL/uL (4.06-5.63); RED CELL DISTRIBUTION WIDTH 14.7 % (12.1-16.2); WHITE BLOOD COUNT (AUTO) 8.5 K/uL (3.6-10.2)
[2025-11-14 06:43] LABS: ASPARTATE AMINOTRANSFERASE 14 U/L (15-37); CREATININE 0.6 mg/dL (0.6-1.3); SODIUM SERUM 144 mmol/L (136-145); TOTAL PROTEIN, SERUM 7.3 g/dL (6.4-8.2); UREA NITROGEN, BLOOD 16 mg/dL (7-18)
[2025-11-14] MEDS: LEVOTHYROXINE SODIUM 75 MCG TABLET PO SCH (07:00)
[2025-11-14] MEDS: CEFEPIME (MAXEPIME) 1 G in IV DEXTROSE 5% 50 ML IV SCH (08:23)
[2025-11-14] MEDS: MIRALAX 17 GM POWD.PACK PO SCH (08:24)
[2025-11-14] MEDS: DOCUSATE SODIUM 100 MG CAPSULE PO SCH (08:24)
[2025-11-14] MEDS: HEPARIN SODIUM,PORCINE 5,000 UNITS/ML VIAL SQ SCH (08:26)
[2025-11-14] MEDS: ACETAMINOPHEN 325 MG TABLET PO PRN (12:47)
[2025-11-14] MEDS: POTASSIUM CHLORIDE 20 MEQ TAB.PRT.SR PO ONE (12:47)
[2025-11-14] MEDS: OLANZAPINE 10 MG VIAL IM PRN (12:54)
[2025-11-14] MEDS ORDERED: IOHEXOL 300MG/ML 100 ML INFUS..BTL ONE (13:56)
[2025-11-14 14:15] VITALS: BP 155/110; TEMP 98.8; O2SAT 98
[2025-11-14 19:00] VITALS: BP 149/100; TEMP 98.7; O2SAT 98
[2025-11-14] MEDS: GABAPENTIN 100 MG CAPSULE PO SCH (21:15)
[2025-11-15] MEDS: HYDROCODONE/APAP 5-325MG TABLET PO PRN (00:01)
[2025-11-15 04:00] VITALS: BP 141/82; TEMP 98.4; O2SAT 99
[2025-11-15 06:33] LABS: PLATELET COUNT (AUTO) 296 K/uL (152-348); RED BLOOD CELL COUNT(AUTO) 4.47 MIL/uL (4.06-5.63); RED CELL DISTRIBUTION WIDTH 14.7 % (12.1-16.2); WHITE BLOOD COUNT (AUTO) 7.6 K/uL (3.6-10.2)
[2025-11-15 06:44] LABS: CREATININE 0.6 mg/dL (0.6-1.3); LACTATE DEHYDROGENASE 153 U/L (85-227); SODIUM SERUM 143 mmol/L (136-145); UREA NITROGEN, BLOOD 14 mg/dL (7-18)
[2025-11-15] MEDS: IV NS 1000 ML 1,000 ML IV PRN (07:05)
[2025-11-15 08:29] LABS: BAND % (MANUAL) 1 % (0-10); NEUTROPHILS % (MANUAL) 52 % (42-75)
[2025-11-15 08:30] LABS: EOSINOPHILS % (MANUAL) 3 % (0-8); LYMPHOCYTES % (MANUAL) 31 % (20-40); METAMYELOCYTES % 1 % (0-1); MONOCYTES % (MANUAL) 7 % (2-10); MYELOCYTES % 5 % (0-0); PLATELET ESTIMATE ADEQUATE
[2025-11-15] MEDS: POTASSIUM CHLORIDE 10 MEQ TAB.PRT.SR PO SCH (11:20)
[2025-11-15 11:41] VITALS: BP 146/78; TEMP 98.5; O2SAT 99
[2025-11-15 15:47] VITALS: BP 176/99; TEMP 99; O2SAT 97
[2025-11-15 16:57] VITALS: BP 158/90; TEMP 98.9; O2SAT 97
[2025-11-15 19:48] VITALS: BP 165/95; TEMP 98.7; O2SAT 97
[2025-11-16 04:32] VITALS: BP 174/83; TEMP 97.4; O2SAT 98
[2025-11-16 07:12] LABS: PLATELET COUNT (AUTO) 324 K/uL (152-348); RED BLOOD CELL COUNT(AUTO) 4.65 MIL/uL (4.06-5.63); RED CELL DISTRIBUTION WIDTH 14.8 % (12.1-16.2); WHITE BLOOD COUNT (AUTO) 8.6 K/uL (3.6-10.2)
[2025-11-16 07:21] LABS: CREATININE 0.4 mg/dL (0.6-1.3); SODIUM SERUM 142 mmol/L (136-145); UREA NITROGEN, BLOOD 15 mg/dL (7-18)
[2025-11-16 08:00] VITALS: BP 160/90; TEMP 98.5; O2SAT 95
[2025-11-16] MEDS: POTASSIUM CHLORIDE 20 MEQ TAB.PRT.SR PO ONE (09:25)
[2025-11-16 12:00] VITALS: BP 161/113; TEMP 98.5; O2SAT 92
[2025-11-16] MEDS ORDERED: DOCU-141 PO (15:48)
[2025-11-16] MEDS ORDERED: CIPR-262 PO (15:48)
[2025-11-16 16:00] VITALS: BP 172/102; TEMP 98.5; O2SAT 97
[2025-11-16 17:57] VITALS: BP 143/83
== END 2025-11-16 19:10 | DRG 393 ==
LOC: ER 15:27 → MEDSURG3 18:13
PROVIDERS: ADMIT Internal Medicine; ATTEND Internal Medicine
DX: K62.89 Other specified diseases of anus and rectum (principal); G93.41 Metabolic encephalopathy; C77.5 Secondary and unspecified malignant neoplasm of intrapelvic lymph nodes; R62.7 Adult failure to thrive; I69.351 Hemiplegia and hemiparesis following cerebral infarction affecting right dominant side; F03.911 Unspecified dementia, unspecified severity, with agitation; C20 Malignant neoplasm of rectum; D64.9 Anemia, unspecified; N39.0 Urinary tract infection, site not specified; E11.40 Type 2 diabetes mellitus with diabetic neuropathy, unspecified; E03.9 Hypothyroidism, unspecified; I10 Essential (primary) hypertension; I77.811 Abdominal aortic ectasia; Z78.1 Physical restraint status; K80.20 Calculus of gallbladder without cholecystitis without obstruction; Z68.22 Body mass index [BMI] 22.0-22.9, adult; Z79.899 Other long term (current) drug therapy; N40.0 Benign prostatic hyperplasia without lower urinary tract symptoms; K59.00 Constipation, unspecified; Z53.20 Procedure and treatment not carried out because of patient's decision for unspecified reasons
CPT/HCPCS: 36415; 70030-TC; 71045; 71260; 82378; 83605; 83615; 83690; 83735; 84100; 84153; 84484; 85025; 85610; 85730; 87086; A4663; A6213; G0378; J0360; J0692; J1644; J2060; J2270; J2358; J2405; J7040; Q9967